=== PATIENT | male | born 1990 | race Caucasian/White ===

== ENCOUNTER 2018-12-03 15:15 | Emergency (ER) | payer SELFPAY ==
[2018-12-03 15:20] VITALS: BP 121/70
--- NOTE | 2018-12-03 16:20 | RADIOLOGY REPORT (SQ) ---
EXAM DESCRIPTION: HAND BILATERAL 3 VIEWS COMPLETED DATE/TIME: 12/03/2018 3:52 pm REASON FOR STUDY: CLOSED BOTH HANDS IN SAN BACK OF CAR. COMPARISON: None. EXAM PARAMETERS: NUMBER OF VIEWS: Three views. TECHNIQUE: AP, lateral and oblique radiographic images acquired of the right and left hand. LIMITATIONS: None. FINDINGS: MINERALIZATION: Normal. BONES: No acute fracture or dislocation. No worrisome bone lesions. JOINTS: No effusions. SOFT TISSUES: No soft tissue swelling. No foreign body. OTHER: No other significant finding. IMPRESSION: No acute fracture or malalignment TECHNICAL DOCUMENTATION: JOB ID: [id number]- All Rights Reserved Reading location - IP/workstation name: [email or web address]
[2018-12-03] MEDS ORDERED: HYDROCODONE/ACETAMINOPHEN 5-325 MG TABLET PO ONE (16:37)
--- NOTE | 2018-12-03 16:38 | ER Document Report ---
HPI - HPI Patient complains to provider of: Bilateral hand pain Time Seen by Provider: 12/03/18 16:05 Onset: This afternoon Onset/Duration: Sudden Quality of pain: Achy Pain Level: 5 Context: Patient was attempting to keep a TV from falling out of the back of the vehicle in the automatic gate of the [place] closed on patient's hands. Patient pulled his hands out as they were starting to be crushed by the gait. Patient complains of pain to fingers of bilateral hands. Associated Symptoms: Other - Bilateral hand pain Exacerbated by: Movement Relieved by: Denies Similar symptoms previously: No Recently seen / treated by doctor: No - ROS ROS below otherwise negative: Yes Systems Reviewed and Negative: Yes All other systems reviewed and negative - NEURO Neurology: DENIES: Weakness - MUSCULOSKELETAL Musculoskeletal: REPORTS: Extremity pain - kyung hands. DENIES: Swelling - DERM Skin Color: Normal Skin Problems: None Past Medical History - General Information source: Patient - Social History Smoking Status: Current Every Day Smoker Smoking Education Provided: Yes Frequency of alcohol use: None Drug Abuse: Marijuana Occupation: [employer] Lives with: Family Family History: Reviewed & Not Pertinent Patient has suicidal ideation: No Patient has homicidal ideation: No - Medical History Medical History: Negative Renal/ Medical History: Denies: Hx Peritoneal Dialysis Past Surgical History: Reports: Hx Orthopedic Surgery - right knee/right shoulder Vertical Provider Document - CONSTITUTIONAL Agree With Documented VS: Yes Exam Limitations: No Limitations General Appearance: WD/WN, No Apparent Distress - INFECTION CONTROL TRAVEL OUTSIDE OF THE [place] IN LAST 30 DAYS: No - HEENT HEENT: Atraumatic, Normocephalic - NECK Neck: Normal Inspection - RESPIRATORY Respiratory: No Respiratory Distress - CARDIOVASCULAR Cardiovascular: Regular Rate Pulses: Normal: Radial - MUSCULOSKELETAL/EXTREMETIES Musculoskeletal/Extremeties: MAEW, FROM, Tender - Tenderness to right and left second through fifth finger DIP joints, no tendon deficit, no edema no ecchymosis, no nail injury, No Edema. negative: Eccymosis - NEURO Level of Consciousness: Awake, Alert, Appropriate Motor/Sensory: No Motor Deficit - DERM Integumentary: Warm, Dry, No Rash Course - Re-evaluation Re-evalutation: 12/03/18 16:36 Patient without any acute fracture noted on x-rays. Will treat symptomatically and encourage outpatient follow-up with orthopedics for any persistent pain or problems - Vital Signs Vital signs: Temp Pulse Resp BP Pulse Ox 98.0 F 81 18 121/70 98 12/03/18 15:19 12/03/18 15:19 12/03/18 15:19 12/03/18 15:19 12/03/18 15:19 - Diagnostic Test Radiology reviewed: Image reviewed, Reports reviewed Discharge - Discharge Clinical Impression: Crush injury to finger Qualifiers: Encounter type: initial encounter Qualified Code(s): S67.10XA - Crushing injury of unspecified finger(s), initial encounter Condition: Stable Disposition: HOME, SELF-CARE Instructions: Acetaminophen, Crush Injury ([facility]), Ice & Elevation ([facility]) Additional Instructions: Return immediately for any new or worsening symptoms Followup with your primary care provider, call tomorrow to make a followup appointment Follow-up with orthopedics for any persistent pain or problems Prescriptions: Naproxen [Naprosyn 250 Nmg Tablet] 1 tab PO BID #14 tablet Forms: Smoking Cessation Education, Return to Work Referrals: LORRAINE STILES DO [ACTIVE STAFF] - Follow up as needed
== END 2018-12-03 16:53 | disposition home or self-care (01) ==
LOC: ER 15:15
DX: M79.641 Pain in right hand (principal); M79.642 Pain in left hand; W23.0XXA Caught, crushed, jammed, or pinched between moving objects, initial encounter; F17.200 Nicotine dependence, unspecified, uncomplicated
CPT/HCPCS: 99283